=== PATIENT | male | born 1940 | race Caucasian/White ===

== ENCOUNTER → 2017-09-13 | Outpatient (CLI) | payer MEDICARE ==
[~2017-09-13] MED LIST: ADVA500A INH; ALBU8I INH; ALLO100T PO; HYDR12.56 PO; LOSA25TA31 PO; METO25 PO; OMEP20CA5 PO; SPIRCAP INH; TAB-TAB PO; ZOCO40TA PO
--- NOTE | 2017-09-16 10:32 | RSPPFT ---
DATE OF PROCEDURE: 11/13/16 COMMENTS: VOLUMES DYNAMIC: FVC mildly reduced; FEV1 moderately reduced. STATIC: TLC mildly reduced; FRC and RV normal. FLOWS: FEV1% moderately reduced; FEF 25-75 severely reduced. DIFFUSION: Moderately reduced. FLOW VOLUME LOOP: Pattern of variable intrathoracic airways obstruction with restriction. IMPRESSION: Moderately severe obstructive ventilatory defect with mild restriction as well. There is a moderate reduction in diffusion capacity. Airways resistance is increased and there is significant improvement post-bronhchodilator.
== END ==
LOC: HRSP 08:33
PROVIDERS: ATTEND Internal Medicine
DX: J44.9 Chronic obstructive pulmonary disease, unspecified (principal)
CPT/HCPCS: 94060; 94620; 94726; 94729